=== PATIENT | female | born 1965 | race Caucasian/White ===

== ENCOUNTER → 2024-05-08 08:06 | Outpatient (REF) | payer OTHER, SELFPAY | LOC: PAVMRI 08:06 | PROVIDERS: ATTENDING PHYSICIAN Internal Medicine Cardiovascular Disease; FAMILY PHYSICIAN Family Medicine | DX: R06.09 Other forms of dyspnea (principal); I35.0 Nonrheumatic aortic (valve) stenosis; I77.810 Thoracic aortic ectasia | CPT/HCPCS: 71555; A9585 ==

== ENCOUNTER 2024-05-09 11:11 | Emergency (ER) | payer OTHER, SELFPAY ==
[2024-05-09 11:14] VITALS: BP 110/87
[2024-05-09 12:20] VITALS: BMI 33.6
[2024-05-09 12:26] VITALS: BP 105/72
[2024-05-09 12:37] LABS: % Basophils 1.1 % (0-2); % Eosinophils 1.5 % (0-6); % Immature Granulocytes 1.4 % (0-0.5); % Lymphocytes 28.7 % (20.5-51.1); % Monocytes 15.3 % (1.7-9.3); Absolute Basophils 0.1 10^3/uL (0-0.2); Absolute Eosinophils 0.2 10^3/uL (0-0.7); Absolute Immature Granulocytes 0.2 10^3/uL (0-0.05); Absolute Lymphocytes 3.2 10^3/uL (1.2-3.4); Absolute Monocytes 1.7 10^3/uL (0.1-0.6); Absolute Neutrophils 5.8 10^3/uL (1.4-6.5); Hematocrit 38.4 % (37.0-47.0); INR 1.09; Mean Corp Hgb Conc. 33.9 g/dL (33.0-37.0); Mean Corpuscular Hgb 27.8 pg (27.0-31.0); Mean Corpuscular Volume 82.1 fL (81.0-99.0); Nucleated Red Blood Cells % 0 %; PT 13.9 Sec (11.4-14.6); Red Blood Cell Count 4.68 10^6/uL (4.20-5.40); Red Cell Dist. Width 14.6 % (11.5-14.5); White Blood Cell Count 11.2 10^3/uL (4.8-10.8)
[2024-05-09 12:38] LABS: APTT 31.7 Sec (23.4-35.0)
[2024-05-09 12:40] LABS: ALT (SGPT) 15 U/L (0-35); AST (SGOT) 26 U/L (14-36); Albumin 4.1 g/dl (3.5-5.0); Alkaline Phosphatase 74 U/L (38-126); Blood Urea Nitrogen 14 mg/dl (7-17); Calcium 9.3 mg/dl (8.4-10.2); Carbon Dioxide 26 mmol/L (22-30); Chloride 107 mmol/L (98-107); Estimated Creatinine Clearance 101 ml/min; Glucose 90 mg/dl (70-99); Potassium 4.5 mmol/L (3.5-5.1); Sodium 140 mmol/L (135-145); Total Bilirubin 0.9 mg/dl (0.2-1.3); eGFR > 60.00
[2024-05-09 13:00] VITALS: BP 102/68
--- NOTE | 2024-05-09 13:09 | ED.GENMED ---
History of Present Illness
General
Chief Complaint: Abnormal Lab Value
Source: patient and spouse
Exam Limitations: none
Time Seen by Provider: 05/09/24 12:03
Nursing documentation reviewed up to this point in time: agreed with
History of Present Illness
History of Present Illness:
The patient is a 59-year-old female past ministry of hyperlipidemia anxiety presenting to the emergency department today with concerns of low platelet count those done as an outpatient which was 19 yesterday as an outpatient lab. She claims that
she had previous evaluation from her hospice consultant and had a routine MRA. On the routine MRI there was an aortic aneurysm that she was aware of however an additional finding of a moderate splenomegaly with multiple small lesions were seen as well.
This is a new finding she had labs yesterday that showed low platelet count no additional lab abnormalities otherwise. Denies any new medications. Of note she was diagnosed with a UTI and treated with Bactrim 3 weeks ago and had a brief episode of
nausea weakness and lack of appetite. Additionally patient is on Plaquenil as well as sulfasalazine for RA.
Review of Systems
Review of Systems
Allergies reviewed?: Yes
All Other Systems: ROS reviewed and negative except as documented in HPI and ROS
Phy Exam
Physical Exam
Physical Exam:
GENERAL: Alert , in no apparent distress
EYE: pupils equal and reactive
NECK: Supple, no significant adenopathy.
ENT: o/p clr, mmm.
CARDIAC: Regular rate and rhythm .
LUNGS: Clear breath sounds bilaterally, no acute respiratory distress, no wheezes/rales/rhonchi
ABDOMEN: Soft, without focal tenderness, no r/g, no cvat
NEUROLOGICAL: Alert and oriented, no focal neuro deficits
SKIN: 2 areas of bruising on the lower abdomen roughly 3 cm in diameter without tenderness to palpation no warmth fluctuance or induration. Warm and dry, skin intact.
MUSCULOSKELETAL: No edema, well perfused.
PSYCH: Normal and appropriate interaction.
Course
Orders/Labs/Results
Orders:
Orders
07/09/24 12:18
Complete Blood Count/With Diff Urgent
Comprehensive Metabolic Panel Urgent
Monotest Urgent
Comment: MONOTEST ADDED ON BY FLOOR 1:15PM 05-09-24
PTT Urgent
Prothrombin Time Urgent
05/09/24 12:26
Urinalysis Reflex To Culture Urgent
Date Specimen was Collected: 05/09/24
Time Specimen was Collected: 12:22
05/09/24 13:13
Add On- LAB Urgent
Tests Added?: Monotest
Abnormal Lab Results
05/09/24
12:18
WBC 11.2 H 10^3/uL
(4.8-10.8)
RDW 14.6 H %
(11.5-14.5)
Plt Count 24 L* 10^3/uL
(130-400)
MPV 11.8 H fL
(7.4-10.4)
Abs Immat Gran (auto) 0.2 H 10^3/uL
(0-0.05)
Absolute Monos (auto) 1.7 H 10^3/uL
(0.1-0.6)
Immature Gran % 1.4 H %
(0-0.5)
Monocytes % 15.3 H %
(1.7-9.3)
05/09/24 12:18
05/09/24 12:18
Vital Signs
Initial and Last Documented VS:
Initial Vital Signs
Temp Pulse Resp BP Pulse Ox
98.4 F 81 18 110/87 97
05/09/24 11:14 05/09/24 11:14 05/09/24 11:14 05/09/24 11:14 05/09/24 11:14
Last Documented Vital Signs
Temp Pulse Resp BP Pulse Ox
98.4 F 67 17 102/68 93
05/09/24 11:14 05/09/24 13:15 05/09/24 13:15 05/09/24 13:00 05/09/24 13:15
MDM/Problems Addressed
MDM/Problems Addressed:
59-year-old female presenting to the emergency department with concerns of outpatient labs showing low platelet count as well as splenomegaly on the MRI on arrival here vital signs are normal patient in no distress patient's platelet count 24 which
slightly higher than yesterday as result of 19 otherwise normal hemoglobin slightly elevated blood cell count other labs are unremarkable urinalysis normal monoscreen negative. Case was discussed with hematology they would like her to follow-up
closely as an outpatient for further assessment. Otherwise stable here no evidence of bleeding.
*Critical Care Note
Total Time (30-74mins, 75-104mins- exclusive of procedures): Not Applicable
ED Attending Note
-
Portions of this chart may have been created with voice recognition software.� Occasional wrong word or��sound alike� substitutions may have occurred due to the inherent limitations of voice recognition software.
Discharge Plan
Departure
Patient Disposition: Home (Routine Discharge)
Date of Disposition: 05/09/24
Time of Disposition: 15:23
Patient with high blood pressure during this ER visit?: No
Condition: Good
Covid-19: Not Applicable
Discharge Problem:
Thrombocytopenia
Instructions: Platelet count
Prescriptions:
No Action
sulfasalazine 500 mg Tablet
0.5 g PO BID
Premarin 0.625 mg Tablet
0.625 mg PO QPM
metoprolol succinate 25 mg Tablet Extended Release 24 Hr
12.5 mg PO DAILY
hydroxychloroquine [Plaquenil] 200 mg Tablet
400 mg PO DAILY
fluoxetine 20 mg Capsule
20 mg PO DAILY
rosuvastatin [Crestor] 10 mg Tablet
10 mg PO QPM
Referrals:
Jaime Zarco MD [Active] - Follow up in 2-3 days
Mar Villa MD [Family Provider] -
Activity Restrictions/Additional Instructions:
You came to the emergency department today with concerns of low platelet count. Here your platelet count was 24 which is low. You will need to follow-up closely with hematology for further assessment. Return to the emergency department any
worsening, new or concerning symptoms.
Interventions
Interventions:
*Risk Screen - Suicide Last Done: 05/09/24 12:20
*General Assessment Last Done: 05/09/24 12:20
*Neglect/Abuse Screening Last Done: 05/09/24 12:20
ED- Fall Risk Assessment Last Done: 05/09/24 12:58
*ED COVID-19 Vaccine History Last Done: 05/09/24 12:20
Discharge Date and Time
Print Language: NIGERIAN
[2024-05-09 13:28] LABS: Urine Albumin Negative (Neg - Trace); Urine Bilirubin Negative (Negative); Urine Character Clear (Clear); Urine Color Yellow; Urine Glucose Negative (Negative); Urine Ketone Negative (Negative); Urine Leukocyte Negative (Negative); Urine Nitrite Negative (Negative); Urine Occult Blood Negative (Negative); Urine Urobilinogen Negative (Neg - 1+)
[2024-05-09 13:53] LABS: Monotest Negative (Negative)
[2024-05-09 14:00] VITALS: BP 112/74
[2024-05-09 14:11] LABS: Mean Platelet Volume 11.8 fL (7.4-10.4)
[2024-05-09 14:12] LABS: Platelet Count 24 10^3/uL (130-400)
[2024-05-09 15:00] VITALS: BP 117/69
== END 2024-05-09 15:36 | disposition home or self-care (01) ==
LOC: EMR 11:11
PROVIDERS: Physician Assistant; EMERGENCY PHYSICIAN Emergency Medicine; FAMILY PHYSICIAN Family Medicine
DX: R79.89 Other specified abnormal findings of blood chemistry (principal); R53.1 Weakness; R11.0 Nausea; R63.0 Anorexia; D69.6 Thrombocytopenia, unspecified; R16.1 Splenomegaly, not elsewhere classified; R01.1 Cardiac murmur, unspecified; E78.5 Hyperlipidemia, unspecified; F41.9 Anxiety disorder, unspecified; M06.9 Rheumatoid arthritis, unspecified; Z87.440 Personal history of urinary (tract) infections
CPT/HCPCS: 99283; 80053; 81003; 85025; 85610; 85730; 86308

== ENCOUNTER → 2024-09-20 14:17 | Outpatient (REF) | payer OTHER, SELFPAY | LOC: HWRAD 14:17 | PROVIDERS: ATTENDING PHYSICIAN Internal Medicine Hematology & Oncology; FAMILY PHYSICIAN Family Medicine | DX: E04.1 Nontoxic single thyroid nodule (principal) | CPT/HCPCS: 76536 ==

== ENCOUNTER → 2025-05-22 09:04 | Outpatient (REF) | payer OTHER, SELFPAY | LOC: HWRCS 09:04 | PROVIDERS: ATTENDING PHYSICIAN Nurse Practitioner; FAMILY PHYSICIAN Family Medicine | DX: I35.0 Nonrheumatic aortic (valve) stenosis (principal) | CPT/HCPCS: 93306 ==